=== PATIENT | female | born 1995 ===

== ENCOUNTER 2020-08-23 12:44 | Emergency (ER) | payer SELFPAY ==
[~2020-08-23] VITALS: Ht 165.1 cm; Wt 61.2 kg
--- NOTE | 2020-08-23 13:07 | NUR ---
Patient discharged to home in stable condition. Written and verbal after care instructions given. Patient verbalizes understanding of instructions. Stressed follow up or return to ER for worsening s/s.
== END 2020-08-23 13:08 | disposition home or self-care (01) ==
LOC: ER 12:47
DX: U07.1 COVID-19 (principal); J45.909 Unspecified asthma, uncomplicated
CPT/HCPCS: 87426; 99283; U0003; A4663

== ENCOUNTER 2021-04-12 04:39 | Emergency (ER) | payer OTHER ==
[~2021-04-12] VITALS: Ht 165.1 cm; Wt 61.2 kg
--- NOTE | 2021-04-12 04:45 | NUR ---
PT AMBULATED TO ER W/ C/O PT SPITTING ON HER LEFT EYE. DENIES ANY PAIN/DISCOMFORT/ITCHING. NO REDNESS ON BILATERAL EYES. A/O X4
--- NOTE | 2021-04-12 04:46 | NUR ---
DR. THAPA AT BEDSIDE. MSE IN PROGRESS.
--- NOTE | 2021-04-12 05:19 | NUR ---
Patient discharged in stable condition. VSS. A/O x4, no SOB or labored breathing, afebrile. Dnies any pain/discomfort. No redness/itching on bilateral eyes. PERRLA. Written and verbal after care instructions given. Patient verbalizes understanding of instructions. Stressed follow up or return to ER for worsening s/s. Steady gait.
[2021-04-12 05:21] VITALS: BP 126/88
[2021-04-13 05:06] LABS: HEPATITIS A AB, TOTAL Positive (Negative)
== END 2021-04-12 05:21 | disposition home or self-care (01) ==
LOC: ER 04:44
DX: S05.90XA Unspecified injury of unspecified eye and orbit, initial encounter (principal); Y93.F9 Activity, other caregiving; Y92.230 Patient room in hospital as the place of occurrence of the external cause; Y99.0 Civilian activity done for income or pay; Z77.21 Contact with and (suspected) exposure to potentially hazardous body fluids; J45.909 Unspecified asthma, uncomplicated
CPT/HCPCS: 36415; 86706; 86708; 86803; 87536; 87806; A4663

== ENCOUNTER 2021-07-02 07:46 | Emergency (ER) | payer BC, OTHER ==
[~2021-07-02] VITALS: Ht 165.1 cm; Wt 61.2 kg
[2021-07-02] MEDS ORDERED: BIRTH CONTROL PILLS (07:58)
[2021-07-02] MEDS ORDERED: ALBU18HF2 INH (07:58)
[2021-07-02] MEDS ORDERED: PROP10TA10 PO (07:58)
[2021-07-02] MEDS ORDERED: SWABABLE VALVE TRANSFER SET EA MC ONE (08:35)
[2021-07-02] MEDS ORDERED: IOHEXOL 350 100 ML INFUS..BTL ONE (08:35)
[2021-07-02] MEDS ORDERED: IV NORMAL SALINE 250 ML IV ONE (08:35)
[2021-07-02] MEDS ORDERED: IV NORMAL SALINE 1000 ML BAG IV ONE (09:15)
--- NOTE | 2021-07-02 09:38 | NUR ---
PT SEEN AND EVALUATED BY DR LANIER. TO CT SCAN - STABLE.
[2021-07-02] MEDS ORDERED: KETOROLAC TROMETHAMINE 15 MG INJ IVP ONE (09:45)
[2021-07-02] MEDS ORDERED: KETOROLAC TROMETHAMINE 15 MG INJ ONE (09:47)
--- NOTE | 2021-07-02 10:13 | NUR ---
Pt laying supine. States no longer having pain. PS 0/10. Denies any adverse effect from medication and fluids provided. (L) pupil continues to appears more dilated than the (R), but are equally responsive and reactive to light.
--- NOTE | 2021-07-02 10:32 | NUR ---
Pt D/C home ambulating with steady gait, in stable condition and no complaint of pain. Saline lock D/C'd, clear and intact. Pt provided with copy of CT report and D/C instructions.
[2021-07-02 10:34] VITALS: BP 139/99
== END 2021-07-02 10:32 | disposition home or self-care (01) ==
LOC: ER 07:46
DX: G43.B0 Ophthalmoplegic migraine, not intractable (principal); R03.0 Elevated blood-pressure reading, without diagnosis of hypertension; J45.909 Unspecified asthma, uncomplicated
CPT/HCPCS: 70496; 96361; 96374; 99285; J1885; Q9967; A4663; J7030; J7050